=== PATIENT | female | born 2000 | race Hispanic/Latino ===

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

== ENCOUNTER 2019-05-02 14:30 | Emergency (ER) | payer OTHER ==
[~2019-05-02] VITALS: Ht 157.5 cm; Wt 85.0 kg
[~2019-05-02 14:30] MED LIST changes: +TORADOL PO; +ZOFRAN4 MG/TAB PO
[2019-05-02 15:17] VITALS: BP 132/83
== END 2019-05-02 15:25 | disposition home or self-care (01) | DRG 605 ==
LOC: ED 14:30
PROC: 0HQGXZZ Repair Left Hand Skin, External Approach (ICD-10-PCS; principal; 2019-05-02)
DX: S61.012A Laceration without foreign body of left thumb without damage to nail, initial encounter (principal); F17.200 Nicotine dependence, unspecified, uncomplicated; W45.8XXA Other foreign body or object entering through skin, initial encounter; Y93.89 Activity, other specified; Y92.89 Other specified places as the place of occurrence of the external cause; Y99.0 Civilian activity done for income or pay

== ENCOUNTER 2023-08-21 22:27 | Emergency (ER) | payer SELFPAY ==
[~2023-08-21] VITALS: Ht 154.9 cm; Wt 68.0 kg
[2023-08-21 22:50] VITALS: BP 106/67
[2023-08-21] MEDS ORDERED: AMOXICILLIN500 MG PO (23:00)
== END 2023-08-21 23:30 | disposition home or self-care (01) | DRG 156 ==
LOC: ED 22:27
DX: K11.8 Other diseases of salivary glands (principal); F17.200 Nicotine dependence, unspecified, uncomplicated